=== PATIENT | male | born 1945 | race Caucasian/White ===

== ENCOUNTER → 2019-10-03 | Outpatient (CLI) | payer MEDICARE | END | disposition home or self-care (01) | LOC: LABWHC1 12:37 | PROVIDERS: ATTEND Internal Medicine | DX: Z11.59 Encounter for screening for other viral diseases (principal) ==

== ENCOUNTER → 2019-10-04 | Day surgery (SDC) | payer MEDICARE ==
[2019-09-30 09:38] VITALS: BMI 29.0
[~2019-10-04] MED LIST: LACTATED RINGERS 1,000 ML IV SCH; LIDOCAINE 1% (10MG/ML) FOR IV START INTRADERMA PRN; PROPOFOL 10 MG/ML 20 ML VIAL IV ONE
[2019-10-04 07:10] VITALS: TEMP 97
[2019-10-04 07:13] LABS: Glucose,Whole Blood 156 mg/dL (75-99)
[2019-10-04 08:00] VITALS: RESP 16
--- NOTE | 2019-10-04 08:04 | P.PCN ---
Date of Procedure: 10/04/19 Description of Procedure: BRIEF HISTORY: Patient is a 74-year-old male with a long-standing history of GERD who presents for outpatient endoscopy for investigation of esophageal dysphagia. Patient reports intermittent dysphagia predominantly to solids. He does have a known history of GERD on omeprazole therapy. PROCEDURE PERFORMED: Esophagogastroduodenoscopy with biopsy. PREOPERATIVE DIAGNOSIS: Dysphagia, esophageal dysphagia, GERD. ESTIMATED BLOOD LOSS: Minimal. IV sedation per anesthesia. PROCEDURE: After informed consent was obtained, the patient was brought into the endoscopy unit. IV sedation was administered by Anesthesia under continuous monitoring. Initially the Olympus GIF-190 video endoscope was inserted into the mouth. Esophagus intubated without any difficulty. It was gradually advanced into the stomach and duodenum and carefully examined. The bulb and the second part of the duodenum appeared normal, with biopsies taken . The scope at this time was withdrawn to the stomach, adequately insufflated with air, and upon careful examination, mucosa of the antrum, body, cardia and the fundus appeared normal, except for some mild linear erythema in the antrum and body suggestive of mild gastritis with biopsies taken . The scope was then withdrawn into the esophagus. The GE junction was located at 39 cm from the incisors and appeared grossly normal there was however some salmon-colored mucosa suggestive of short segment Marks's esophagus with biopsies of the GE junction taken . The esophagus appeared normal. There were no erosions or ulcerations seen and the patient tolerated the procedure well. IMPRESSION: 1. Mild gastritis antrum and body, biopsied. 2. Duodenal biopsies and biopsies of the GE junction to rule out Marks's esophagus. 3. No gross abnormalities, strictures or masses to explain dysphagia. RECOMMENDATIONS: The findings of this examination were discussed with the patient . Okay to resume diet. Okay to resume medications. Await pathology from biopsies. Okay for discharge.
[2019-10-04 08:15] VITALS: BP 127/77; PULSE 67
== END ==
LOC: ORWHC2ENDO 06:48
PROVIDERS: ATTEND Internal Medicine
DX: K21.0 Gastro-esophageal reflux disease with esophagitis (principal); K29.50 Unspecified chronic gastritis without bleeding; K22.9 Disease of esophagus, unspecified; R13.14 Dysphagia, pharyngoesophageal phase; I10 Essential (primary) hypertension; E78.5 Hyperlipidemia, unspecified; E11.9 Type 2 diabetes mellitus without complications; Z87.891 Personal history of nicotine dependence; Z90.49 Acquired absence of other specified parts of digestive tract; Z98.890 Other specified postprocedural states; Z97.2 Presence of dental prosthetic device (complete) (partial); Z79.84 Long term (current) use of oral hypoglycemic drugs; Z79.82 Long term (current) use of aspirin; Z79.899 Other long term (current) drug therapy
CPT/HCPCS: 88305; 43239; J2704

== ENCOUNTER → 2020-05-07 | Outpatient (CLI) | payer MEDICARE ==
[2020-05-07 10:19] LABS: Basophils # (A) 0.1 k/uL (0-0.2); Basophils % (A) 1 %; Eosinophils # (A) 0.5 k/uL (0-0.7); Eosinophils % (A) 6 %; HCT 46.8 % (39.0-53.0); HGB 15.9 gm/dL (13.0-17.5); Lymphocytes # (A) 2.4 k/uL (1.0-4.8); Lymphocytes % (A) 26 %; MCH 31.3 pg (25.0-35.0); Mean Platelet Volume 7.3; Monocytes # (A) 0.6 k/uL (0-1.0); Monocytes % (A) 6 %; Neutrophils # (A) 5.4 k/uL (1.3-7.7); Neutrophils % (A) 59 %; Platelet Count 203 k/uL (150-450); RBC 5.09 m/uL (4.30-5.90); RDW 12.5 % (11.5-15.5); WBC 9.1 k/uL (3.8-10.6)
[2020-05-07 10:21] LABS: Appearance,Urine Clear (Clear); Bilirubin,Urine Negative (Negative); Blood,Urine Negative (Negative); Color,Urine Yellow; Glucose,Urine (UA) Trace (Negative); Ketones,Urine Negative (Negative); Leukocyte Esterase,Urine Negative (Negative); Nitrite,Urine Negative (Negative); PH, Urine 5.5 (5.0-8.0); Protein,Urine Negative (Negative); Urobilinogen,Urine <2.0 mg/dL (<2.0)
[2020-05-07 17:53] LABS: Urine Creatinine 129.2 mg/dL
[2020-05-07 21:17] LABS: African American GFR (CKD) 103.4 (60.0-200.0); Albumin 4.8 g/dL (3.80-4.90); Albumin/Globulin Ratio 2.53 (1.60-3.17); Anion Gap 9.8 mmol/L (4.00-12.00); BUN/Creat Ratio 17.5 Ratio (12.00-20.00); Calcium 9.3 mg/dL (8.7-10.3); Carbon Dioxide 28.2 mmol/L (21.6-31.8); Chol/HDL Ratio 3.93; Globulin 1.9 g/dL (1.6-3.3); LDL Cholesterol,Calculated 67.8 mg/dL (0.0-131.0); Non-African American GFR(CKD) 89.2 (60.0-200.0); Total Bilirubin 0.7 mg/dL (0.3-1.2); Total Protein 6.7 g/dL (6.2-8.2); VLDL Calculation 61.2 mg/dL (5.00-40.00)
== END | disposition home or self-care (01) ==
LOC: LABWHC1 09:34
PROVIDERS: ATTEND Internal Medicine
DX: I10 Essential (primary) hypertension (principal); E11.9 Type 2 diabetes mellitus without complications; E55.9 Vitamin D deficiency, unspecified
CPT/HCPCS: 36415; 80053; 80061; 81003; 82043; 82306; 82570; 83036; 85025

== ENCOUNTER → 2022-05-26 | Outpatient (CLI) | payer MEDICARE ==
--- NOTE | 2022-05-26 08:09 | US ---
EXAMINATION TYPE: US carotid duplex BILAT DATE OF EXAM: 05/26/2022 COMPARISON: NONE CLINICAL HISTORY: I10 htn Z98.890 postprocedural states. TECHNIQUE: Carotid duplex ultrasound examination. Indirect Doppler criteria was utilized. FINDINGS: EXAM MEASUREMENTS: RIGHT: Peak Systolic Velocity (PSV) cm/sec ----- Right CCA: 69.5 ----- Right ICA: 67.0 ----- Right ECA: 97.4 ICA/CCA ratio: 1.0 RIGHT: End Diastole cm/sec ----- Right CCA: 18.8 ----- Right ICA: 22.0 ----- Right ECA: 10.6 LEFT: Peak Systolic Velocity (PSV) cm/sec ----- Left CCA: 65.8 ----- Left ICA: 64.3 ----- Left ECA: 71.7 ICA/CCA ratio: 1.0 LEFT: End Diastole cm/sec ----- Left CCA: 16.4 ----- Left ICA: 19.9 ----- Left ECA: 15.1 VERTEBRALS (direction of flow): Right Vertebral: Antegrade Left Vertebral: Antegrade CIRCUIT MANAGER NOTES: No significant stenosis seen Mild atherosclerotic plaque within both carotid bulbs. IMPRESSION: No ultrasound evidence for clinically significant carotid arterial system stenosis. Criteria for Assigning % of Stenosis / Diameter reduction (Estimation based on the indirect measurements of the internal carotid artery velocities (ICA PSV). 1. Normal (no stenosis)=ICA PSV < 125 cm/s: ratio < 2.0: ICA EDV<40 cm/s. 2. Less than 50% stenosis=ICA PSV < 125 cm/s: ratio < 2.0: ICA EDV<40 cm/s. 3. 50 to 69% stenosis=ICA PSV of 125 to 230 cm/s: ration 2.0 ? 4.0: ICA EDV 40-100 cm/s. 4. Greater than 70% stenosis to near occlusion= ICA PSV > 230 cm/s: ratio > 4.0: ICA EDV > 100 cm/s. 5. Near occlusion= ICA PSV velocities may be low or undetectable: variable ratio and ICA EDV. 6. Total occlusion=unable to detect flow.
--- NOTE | 2022-05-26 10:58 | CA ---
Transthoracic Echo Report Name: Harvey Brown Age: 76 Gender: M : 1945 Exam Date: 05/26/2022 08:22 Exam Location: [facility] Ht (in): 67 Wt (lb): 175 Ordering Physician: Crow Alexander MD Attending/Referring Phys: Manuel Archibald PAC [employer] Melinda White RDCS Procedure CPT: Indications: I10 htn Z98.890 postprocedural states Cardiac Hx: Technical Quality: Fair Contrast 1: Total Dose (mL): Contrast 2: Total Dose (mL): MEASUREMENTS (Male / Female) Normal Values 2D ECHO LV Diastolic Diameter PLAX 3.9 cm 4.2 - 5.9 / 3.9 - 5.3 cm LV Systolic Diameter PLAX 2.3 cm IVS Diastolic Thickness 1.1 cm 0.6 - 1.0 / 0.6 - 0.9 cm LVPW Diastolic Thickness 1.2 cm 0.6 - 1.0 / 0.6 - 0.9 cm LV Relative Wall Thickness 0.6 RV Internal Dim ED PLAX 3.9 cm LA Volume 41.1 cm??? 18 - 58 / 22 - 52 cm??? M-MODE Aortic Root Diameter MM 2.4 cm LA Systolic Diameter MM 4.3 cm LA Ao Ratio MM 1.8 AV Cusp Separation MM 1.7 cm DOPPLER AV Peak Velocity 136.4 cm/s AV Peak Gradient 7.4 mmHg AV Mean Velocity 101.9 cm/s AV Mean Gradient 4.4 mmHg AV Velocity Time Integral 30.6 cm LVOT Peak Velocity 115.6 cm/s LVOT Peak Gradient 5.3 mmHg LVOT Velocity Time Integral 25.6 cm MV Area PHT 3.3 cm??? Mitral E Point Velocity 79.2 cm/s Mitral A Point Velocity 105.5 cm/s Mitral E to A Ratio 0.8 MV Deceleration Time 233.4 ms TR Peak Velocity 153.9 cm/s TR Peak Gradient 9.5 mmHg Right Ventricular Systolic Press 13.9 mmHg FINDINGS Left Ventricle Mildly increased left ventricular wall thickness. Normal left ventricular systolic function with no obvious regional wall motion abnormalities. left ventricular cavity size normal. Left ventricular ejection fraction is estimated at 55-60 %. Right Ventricle Mild right ventricular dilatation. Right ventricular systolic pressure within normal limits. Right Atrium Normal right atrial size. Left Atrium Normal left atrial size. Mitral Valve Structurally normal mitral valve. No mitral stenosis, regurgitation or prolapse. Aortic Valve Trileaflet aortic valve. No aortic valve stenosis or regurgitation. Aortic valve sclerosis. Tricuspid Valve Mild tricuspid regurgitation. Pulmonic Valve Trace pulmonic regurgitation. Pericardium No pericardial effusion. Aorta Normal size aortic root and proximal ascending aorta. CONCLUSIONS Normal LV systolic function Mild tricuspid regurgitation Previewed by: Dr. Castillo Peña MD (Electronically Signed) Final Date: 26 May 2022 10:57
== END | disposition home or self-care (01) ==
LOC: RADUSWWP 07:28
PROVIDERS: ATTEND Family Medicine
DX: I07.1 Rheumatic tricuspid insufficiency (principal); I10 Essential (primary) hypertension; Z98.890 Other specified postprocedural states
CPT/HCPCS: 93306; 93880